=== PATIENT | male | born 1955 | race African-American/Black ===

== ENCOUNTER 2017-12-16 17:53 | Emergency (ER) | payer OTHER | END 2017-12-16 20:37 | disposition home or self-care (01) | LOC: FTE 17:53 | DX: S39.012A Strain of muscle, fascia and tendon of lower back, initial encounter (principal); R07.9 Chest pain, unspecified; X58.XXXA Exposure to other specified factors, initial encounter; Y92.9 Unspecified place or not applicable | CPT/HCPCS: 71046; 99283-25 ==

== ENCOUNTER 2018-02-09 20:19 | Emergency (ER) | payer OTHER | END 2018-02-09 23:07 | disposition home or self-care (01) | LOC: E/R 20:19 | DX: M54.14 Radiculopathy, thoracic region (principal); R40.2142 Coma scale, eyes open, spontaneous, at arrival to emergency department; R40.2252 Coma scale, best verbal response, oriented, at arrival to emergency department | CPT/HCPCS: 72128; 99284-25 ==

== ENCOUNTER 2018-10-04 19:48 | Emergency (ER) | payer OTHER ==
[2018-10-04 23:37] LABS: ADD MAN DIFF? NO
[2018-10-04] MEDS: ONDANSETRON 4 MG INJ IV (23:38)
[2018-10-04] MEDS: morphine 4 MG/ML VIAL IV (23:39)
[2018-10-04 23:45] LABS: ADD UMIC NO; UR ASCORBIC ACID NEGATIVE (NEGATIVE); UR BILIRUBIN (Dip) NEGATIVE (NEGATIVE); UR BLOOD (Dip) NEGATIVE (NEGATIVE); UR CLARITY CLEAR (CLEAR); UR COLOR YELLOW (YELLOW); UR GLUCOSE (Dip) 3+ mg/dL (NEGATIVE); UR KETONES (Dip) NEGATIVE (NEGATIVE); UR LEUKOCYTE ESTERASE (Dip) NEGATIVE Leu/ul (NEGATIVE); UR NITRITE (Dip) NEGATIVE (NEGATIVE); UR SPECIFIC GRAVITY (Dip) 1.015 (1.003-1.030); UR TOTAL PROTEIN (Dip) NEGATIVE (NEGATIVE); UR UROBILINOGEN (Dip) NEGATIVE (NEGATIVE)
[2018-10-05 00:03] LABS: ALANINE AMINOTRANSFERASE 20 IU/L (13-69); ALBUMIN 4.1 g/dl (3.3-4.9); ALBUMIN/GLOBULIN RATIO 1.13; ALKALINE PHOSPHATASE 51 IU/L (42-121); ANION GAP 9 (5-13); ASPARTATE AMINO TRANSFERASE 22 IU/L (15-46); BILIRUBIN,INDIRECT 0.3 mg/dl (0-1.1); BILIRUBIN,TOTAL 0.3 mg/dl (0.2-1.3); BLOOD UREA NITROGEN 10 mg/dl (7-20); CALCIUM 9.7 mg/dl (8.4-10.2); CARBON DIOXIDE 31 mmol/L (21-31); CHLORIDE 104 mmol/L (97-110); Estimated GFR > 60 mL/min (>60); GLUCOSE 143 mg/dl (70-220); POTASSIUM 4.6 mmol/L (3.5-5.1); SODIUM 144 mmol/L (135-144); TOTAL PROTEIN 7.7 g/dl (6.1-8.1)
[2018-10-05] MEDS: SOD CHLORIDE 0.9% 100 ML (00:22)
[2018-10-05] MEDS: IOHEXOL 300MG/ML 150 ML BTL (00:22)
[2018-10-05 02:32] LABS: BASOPHILS % 0.5 % (0.0-2.0); EOSINOPHILS # 0.1 10^3/ul (0.0-0.5); EOSINOPHILS % 1.5 % (0.0-7.0); HEMATOCRIT 40.9 % (42.0-52.0); HEMOGLOBIN 13.9 g/dl (14.0-18.0); LYMPHOCYTES # 2.6 10^3/ul (0.8-2.9); LYMPHOCYTES % 39.9 % (15.0-51.0); MEAN CORPUSCULAR HEMOGLOBIN 30.1 pg (29.0-33.0); MEAN CORPUSCULAR VOLUME 88.5 fl (82.0-101.0); MEAN PLATELET VOLUME 10.3 fl (7.4-10.4); MONOCYTE # 0.6 10^3/ul (0.3-0.9); MONOCYTES % 8.4 % (0.0-11.0); NEUTROPHIL # 3.2 10^3/ul (1.6-7.5); NEUTROPHILS % 49.4 % (39.0-77.0); PLATELET COUNT 254 10^3/UL (140-415); RED BLOOD COUNT 4.62 10^6/ul (4.70-6.10); RED CELL DISTRIBUTION WIDTH 12.9 % (11.5-14.5)
[2018-10-05 02:32] LABS: WHITE BLOOD COUNT 6.6 10^3/ul (4.8-10.8)
== END 2018-10-05 03:35 | disposition home or self-care (01) ==
LOC: FTE 10-05 03:35
DX: S30.1XXA Contusion of abdominal wall, initial encounter (principal); S39.012A Strain of muscle, fascia and tendon of lower back, initial encounter; S16.1XXA Strain of muscle, fascia and tendon at neck level, initial encounter; V89.2XXA Person injured in unspecified motor-vehicle accident, traffic, initial encounter
CPT/HCPCS: 36415; 72125; 74177; 80053; 81003; 85025; 96374; 96375; 99285-25

== ENCOUNTER 2019-02-19 17:22 | Emergency (ER) | payer OTHER ==
[2019-02-19] MEDS: IBUPROFEN 600 MG TAB PO (18:06)
[2019-02-19] MEDS: ACETAMINOPHEN 500 MG TAB PO (18:06)
== END 2019-02-19 19:26 | disposition home or self-care (01) ==
LOC: FTE 19:26
DX: R07.81 Pleurodynia (principal)
CPT/HCPCS: 71100; 99283-25